=== PATIENT | male | born 1945 | race Caucasian/White ===

== ENCOUNTER 2018-01-22 09:13 | Inpatient (IN) | payer MEDICARE, BC ==
[2018-01-22] MEDS ORDERED: 0.9 % SODIUM CHLORIDE 1000ML 1,000 ML IV ONE (10:36)
--- NOTE | 2018-01-22 10:37 | Emergency Department Record ---
History of Present Illness - General Chief complaint: Facial Swelling Stated complaint: FACIAL SWELLING Time Seen by Provider: 01/22/18 10:26 Source: Patient, RN notes reviewed Mode of Arrival: Ambulatory - History of Present Illness Initial Comments: patient states his nose started 6 days ago and he was working on a fence and bees were around and he didn't think he got stung and he was seen at [facility] [place] times two since than, first visit place on medrol dose snow with a steroid shot and seen again yesterday ready care started him on bactrim DS bid first dose last night. His nose is swollen and especially on the septum of the nose and and facial swelling. Onset/Timin -: Week(s) Exposure: Unknown Symptoms: Facial swelling Severity: Moderate Treatment Prior to Arrival: Steroids - Related Data Home Medications Medication Instructions Recorded Confirmed Last Taken Sulfamethoxazole/Trimethoprim 800 mg PO BID 01/22/18 01/22/18 Unknown [Sulfamethoxazole-Tmp Ds Tablet] Allergies Allergy/AdvReac Type Severity Reaction Status Date / Time No Known Drug Allergies Allergy Verified 01/22/18 09:21 Travel Screening - Travel/Exposure Within Last 30 Days Have you traveled within the last 30 days?: No Review of Systems Reviewed: No additional complaints except as noted below Constitutional: Reports: As per HPI. Denies: Chills, Fever, Malaise, Night sweats, Weakness, Weight change Eyes: Reports: As per HPI. Denies: Eye discharge, Eye pain, Photophobia, Vision change ENT: Reports: As per HPI. Denies: Congestion, Dental pain, Ear pain, Epistaxis , Hearing loss, Throat pain Respiratory: Reports: As per HPI. Denies: Cough, Dyspnea, Hemoptysis, Stridor, Wheezes Cardiovascular: Reports: As per HPI. Denies: Arrhythmia, Chest pain, Dyspnea on exertion, Edema, Murmurs, Orthopnea, Palpitations, Paroxysmal nocturnal dyspnea, Rheumatic Fever, Syncope Endocrine: Reports: As per HPI. Denies: Fatigue, Heat or cold intolerance, Polydipsia, Polyuria Gastrointestinal: Reports: As per HPI. Denies: Abdominal pain, Constipation, Diarrhea, Hematemesis, Hematochezia, Melena, Nausea, Vomiting Genitourinary: Reports: As per HPI. Denies: Dysuria, Frequency, Hematuria, Incontinence, Retention, Testicular pain, Testicular mass, Urgency Musculoskeletal: Reports: As per HPI. Denies: Arthralgia, Back pain, Gout, Joint swelling, Myalgia, Neck pain Skin: Reports: As per HPI. Denies: Bruising, Change in color, Change in hair/ nails, Lesions, Pruritus, Rash Neurological: Reports: As per HPI. Denies: Abnormal gait, Confusion, Headache, Numbness, Paresthesias, Seizure, Tingling, Tremors, Vertigo, Weakness Psychiatric: Reports: As per HPI. Denies: Anxiety, Auditory hallucinations, Depression, Homicidal thoughts, Suicidal thoughts, Visual hallucinations Hematological/Lymphatic: Reports: As per HPI. Denies: Anemia, Blood Clots, Easy bleeding, Easy bruising, Swollen glands Past Medical History - SOCIAL HISTORY Smoking Status: Never smoker Alcohol Use: Occasional Drug Use: None - RESPIRATORY Hx Respiratory Disorders: No - CARDIOVASCULAR Hx Cardio Disorders: No - NEURO Hx Neuro Disorders: No - GI Hx GI Disorders: No - Hx Genitourinary Disorders: No - ENDOCRINE Hx Endocrine Disorders: No - MUSCULOSKELETAL Hx Musculoskeletal Disorders: No - PSYCH Hx Psych Problems: No - HEMATOLOGY/ONCOLOGY Hx Hematology/Oncology Disorders: No Family Medical History Any Significant Family History?: No Physical Exam - General General Appearance: Alert, Oriented x3, Cooperative, No acute distress - Head Head exam: Normal inspection - Eye Eye exam: Normal appearance, PERRL Pupils: Normal accommodation - ENT ENT exam: Normal exam, Mucous membranes moist, Normal external ear exam, Normal orophraynx, TM's normal bilaterally Ear exam: Normal external inspection. negative: External canal tenderness Nasal Exam: Other (nasal septum is swollen and tip on nose swollen). negative: Discharge, Sinus tenderness Mouth exam: Normal external inspection, Tongue normal Teeth exam: Normal inspection. negative: Dental caries Throat exam: Normal inspection. negative: Tonsillar erythema, Tonsillar exudate - Neck Neck exam: Normal inspection, Full ROM. negative: Tenderness - Respiratory Respiratory exam: Normal lung sounds bilaterally. negative: Respiratory distress - Cardiovascular Cardiovascular Exam: Regular rate, Normal rhythm, Normal heart sounds - GI/Abdominal GI/Abdominal exam: Soft, Normal bowel sounds. negative: Tenderness - Rectal Rectal exam: Deferred - exam: Deferred - Extremities Extremities exam: Normal inspection, Full ROM, Normal capillary refill. negative: Tenderness - Back Back exam: Reports: Normal inspection, Full ROM. Denies: Muscle spasm, Rash noted, Tenderness - Neurological Neurological exam: Alert, Normal gait, Oriented X3, Reflexes normal - Psychiatric Psychiatric exam: Normal affect, Normal mood - Skin Skin exam: Dry, Intact, Normal color, Warm Course Vital Signs 01/22/18 09:16 Temperature 98.1 F Pulse Rate 71 Respiratory 20 Rate Blood Pressure 123/82 Pulse Ox 99 - Reevaluation(s) Reevaluation #1: discussed case with Corina and will admit to Dr De Los Santos 01/22/18 11:29 01/22/18 11:33 Medical Decision Making - Data Complexity MDM Data: Labs Ordered and/or Reviewed (wbc [id number]) - Lab Data Result diagrams: 01/22/18 10:45 01/22/18 10:45 Disposition Clinical Impression: Cellulitis of nose, external, Facial cellulitis Decision to Admit: Admit from ER Condition: (2) Stable Forms: Patient Portal Access Time of Disposition: 11:35 Quality - Quality Measures Quality Measures: N/A - Blood Pressure Screening Does Patient Have Any of the Following: No Blood Pressure Classification: Pre-Hypertensive BP Reading Systolic Measurement: 123 Diastolic Measurement: 82 Screening for High Blood Pressure: < Pre-Hypertensive BP, F/U Documented > [ [id number]] Pre-Hypertensive Follow-up Interventions: Referral to alternative/primary care provider.
[2018-01-22 10:57] LABS: HEMATOCRIT 45.5 % (42.0-52.0); HEMOGLOBIN 14.9 gm/dl (14.0-18.0); MEAN CELL VOLUME 85.2 fl (81-97); MEAN CORPUSCULAR HEMOGLOBIN 27.9 pg (27-33); MEAN CORPUSCULAR HGB CONC 32.7 g/dl (32-36); MEAN PLATELET VOLUME 9.3 fl (7.4-10.4); PLATELET COUNT 238 K/uL (130-400); RED BLOOD COUNT 5.34 M/uL (4.40-5.70); RED CELL DISTRIBUTION WIDTH 16.8 % (11.5-14.5); WHITE BLOOD COUNT W/O DIFF 9.9 K/uL (4.2-12.2)
[2018-01-22 11:06] LABS: BLOOD UREA NITROGEN 14 mg/dL (8-23); EST GLOMERULAR FILTRATION RATE > 60 mL/min
[2018-01-22 11:09] LABS: GLUCOSE,RANDOM 101 mg/dL (74-109)
[2018-01-22] MEDS ORDERED: VANCOMYCIN HCL 1,000 MG in 0.9 % SODIUM CHLORIDE 250ML 250 ML IVPB ONE (11:13)
[2018-01-22] MEDS ORDERED: TMP/SMZ 160MG/800MG TAB PO SCH (12:00)
[2018-01-22] MEDS ORDERED: 0.9 % SODIUM CHLORIDE 1000ML 2,000 ML IV PRN (13:46)
[2018-01-22] MEDS: VANCOMYCIN HCL 1,000 MG in 0.9 % SODIUM CHLORIDE 250ML 250 ML IVPB SCH (13:50)
[2018-01-22] MEDS: ACETAMINOPHEN 325 MG TAB PO PRN (14:12)
[2018-01-22] MEDS ORDERED: PNEUM 13-VAL/PF 0.5 ML IM ONE (14:27)
[2018-01-22] MEDS: HYDROCODONE/APAP 5/325MG TABLET PO PRN ×2 (15:37→20:11)
[2018-01-22] MEDS ORDERED: DIPHENHYDRAMINE HCL 25 MG CAPSULE PO ONE (23:59)
[2018-01-23] MEDS: VANCOMYCIN HCL 1,000 MG in 0.9 % SODIUM CHLORIDE 250ML 250 ML IVPB SCH ×2 (01:33→14:15)
[2018-01-23] MEDS: HYDROCODONE/APAP 5/325MG TABLET PO PRN ×2 (02:07→08:44)
--- NOTE | 2018-01-23 06:19 | History & Physical ---
History of Present Illness - Date of Service Date of Service for History & Physical: 01/22/18 - History of Present Illness Admitting Diagnosis: nose and facial cellulitis History of Present Illness: Mr. Casey is a 72 year-old male who presented to the ED this morning with c/o nasal swelling. He states that he had been working on a fence and bees were around- he didn't think he got stung and he was seen at [facility] twice since then, first visit place on medrol dose pack with a steroid shot and seen again yesterday and started on bactrim DS bid (first dose last night). His nose is swollen and especially on the septum of the nose and and left facial swelling. His history is unremarkable. In the ED, his vitals were wnl and stable, his CBC and CMP were unremarkable. Due to the extend of his facial cellulitis, he was admitted for IV antibiotic therapy and monitoring. 01/22/18 1600: Pt. is resting in bed. He does nasal septum and left maxillary swelling and tenderness. His pain is being managed with norco 5/325- 2 tabs q6h. He is scheduled to receive bactrim ds q12h and vanco 1g q12h. Will recheck labs and reassess extent of swelling in the morning. Will consider sinus CT and possibly transfer for ENT referral if no improvement over night. Travel Screening - Travel/Exposure Within Last 30 Days Have you traveled within the last 30 days?: No - Travel/Exposure Within Last Year Have you traveled outside the [place] in the last year?: No - Additonal Travel Details Have you been exposed to anyone with a communicable illness?: No - Travel Symptoms Symptom Screening: None Review of Systems Constitutional: Reports: As per HPI. Denies: Chills, Fever, Malaise, Night sweats, Weakness, Weight change Eyes: Reports: As per HPI. Denies: Eye discharge, Eye pain, Photophobia, Vision change ENT: Reports: As per HPI. Denies: Congestion, Dental pain, Ear pain, Epistaxis , Hearing loss, Throat pain Respiratory: Reports: As per HPI. Denies: Cough, Dyspnea, Hemoptysis, Stridor, Wheezes Cardiovascular: Reports: As per HPI. Denies: Arrhythmia, Chest pain, Dyspnea on exertion, Edema, Murmurs, Orthopnea, Palpitations, Paroxysmal nocturnal dyspnea, Rheumatic Fever, Syncope Endocrine: Reports: As per HPI. Denies: Fatigue, Heat or cold intolerance, Polydipsia, Polyuria Gastrointestinal: Reports: As per HPI. Denies: Abdominal pain, Constipation, Diarrhea, Hematemesis, Hematochezia, Melena, Nausea, Vomiting Genitourinary: Reports: As per HPI. Denies: Dysuria, Frequency, Hematuria, Incontinence, Retention, Testicular pain, Testicular mass, Urgency Musculoskeletal: Reports: As per HPI. Denies: Arthralgia, Back pain, Gout, Joint swelling, Myalgia, Neck pain Skin: Reports: As per HPI. Denies: Bruising, Change in color, Change in hair/ nails, Lesions, Pruritus, Rash Neurological: Reports: As per HPI. Denies: Abnormal gait, Confusion, Headache, Numbness, Paresthesias, Seizure, Tingling, Tremors, Vertigo, Weakness Psychiatric: Reports: As per HPI. Denies: Anxiety, Auditory hallucinations, Depression, Homicidal thoughts, Suicidal thoughts, Visual hallucinations Hematological/Lymphatic: Reports: As per HPI. Denies: Anemia, Blood Clots, Easy bleeding, Easy bruising, Swollen glands Past Medical History - SOCIAL HISTORY Smoking Status: Never smoker Alcohol Use: Rare Drug Use: None - RESPIRATORY Hx Respiratory Disorders: No - CARDIOVASCULAR Hx Cardio Disorders: No - NEURO Hx Neuro Disorders: No - GI Hx GI Disorders: No - Hx Genitourinary Disorders: No - ENDOCRINE Hx Endocrine Disorders: No - MUSCULOSKELETAL Hx Musculoskeletal Disorders: No - PSYCH Hx Psych Problems: No - HEMATOLOGY/ONCOLOGY Hx Hematology/Oncology Disorders: No Family Medical History Any Significant Family History?: No H&P Meds/Allergies - Allergies Allergies: Allergies Allergy/AdvReac Type Severity Reaction Status Date / Time No Known Drug Allergies Allergy Verified 01/22/18 09:21 - Home Medications Home Medications Medication Instructions Recorded Confirmed Last Taken Sulfamethoxazole/Trimethoprim 800 mg PO BID 01/22/18 01/22/18 Unknown [Sulfamethoxazole-Tmp Ds Tablet] - Active Medications Active Medications: Current Medications Acetaminophen (Tylenol 325mg) 650 mg PO Q6H PRN PRN Reason: PAIN - MILD(1-4)/FEVER Last Admin: 01/22/18 14:12 Dose: 650 mg Hydrocodone Bitart/Acetaminophen ([place] 5mg/325mg) 2 each PO Q6H PRN PRN Reason: PAIN - MILD TO MODERATE (1-7) Last Admin: 01/23/18 02:07 Dose: 2 each Enoxaparin Sodium (Lovenox) 40 mg SC DAILY [facility] Vancomycin HCl 1,000 mg/ (Sodium Chloride) 250 mls @ 250 mls/60 min IVPB Q12H [facility] Stop: 01/27/18 13:47 Last Infusion: 01/23/18 02:44 Dose: Infused Trimethoprim/Sulfamethoxazole (Bactrim Ds) 1 each PO BID [facility] Last Admin: 01/22/18 14:12 Dose: 1 each Physical Exam - Vital Signs Vital Signs: Vital Signs - Last 24 Hrs Temp Pulse Pulse Resp BP BP Pulse Ox 01/23/18 00:00 52 L 18 138/80 93 L 01/22/18 21:00 53 L 18 01/22/18 20:09 98.1 F 53 L 18 99/64 96 01/22/18 18:00 97.6 F 52 L 16 110/56 95 01/22/18 13:38 53 L 18 113/72 98 01/22/18 13:30 97.9 F 57 L 18 119/75 100 01/22/18 09:16 98.1 F 71 20 123/82 99 - General General Appearance: Alert, Oriented x3, Cooperative, No acute distress - Head Head exam: Normal inspection - Eye Eye exam: Normal appearance, PERRL Pupils: Normal accommodation - ENT ENT exam: Normal exam, Mucous membranes moist, Normal external ear exam, Normal orophraynx, TM's normal bilaterally Ear exam: Normal external inspection. negative: External canal tenderness Nasal Exam: Other (nasal septum is swollen and tip on nose swollen). negative: Discharge, Sinus tenderness Mouth exam: Normal external inspection, Tongue normal Teeth exam: Normal inspection. negative: Dental caries Throat exam: Normal inspection. negative: Tonsillar erythema, Tonsillar exudate - Neck Neck exam: Normal inspection, Full ROM. negative: Tenderness - Respiratory Respiratory exam: Normal lung sounds bilaterally. negative: Respiratory distress - Cardiovascular Cardiovascular Exam: Regular rate, Normal rhythm, Normal heart sounds - GI/Abdominal GI/Abdominal exam: Soft, Normal bowel sounds. negative: Tenderness - Rectal Rectal exam: Deferred - exam: Deferred - Extremities Extremities exam: Normal inspection, Full ROM, Normal capillary refill. negative: Tenderness - Back Back exam: Reports: Normal inspection, Full ROM. Denies: Muscle spasm, Rash noted, Tenderness - Neurological Neurological exam: Alert, Normal gait, Oriented X3, Reflexes normal - Psychiatric Psychiatric exam: Normal affect, Normal mood - Skin Skin exam: Dry, Intact, Normal color, Warm Results - Labs Result Diagrams: 01/22/18 10:45 01/22/18 10:45 Labs Last 24 Hours: Laboratory Results - last 24 hr 01/22/18 01/22/18 10:45 10:45 WBC 9.9 RBC 5.34 Hgb 14.9 Hct 45.5 MCV 85.2 MCH 27.9 MCHC 32.7 RDW 16.8 H Plt Count 238 MPV 9.3 Neutrophils % 79.0 Band Neutrophils % 0.0 Eosinophils % Not Reportable Basophils % Not Reportable Lymphocytes 14.0 L Monocytes 4.0 Basophils 0.0 Eosinophil Count 3.0 Sodium 138 Potassium 3.9 Chloride 100 Carbon Dioxide 28.0 Anion Gap 10.0 BUN 14 Creatinine 1.0 Estimated GFR > 60 Random Glucose 101 Calcium 8.7 L VTE H&P Assessment - Risk for VTE Risk for VTE: Yes Risk Level: Low Risk Assessment Date: 01/22/18 Risk Assessment Time: 16:00 VTE Orders Placed or Will Be Placed: Yes Plan - Inpatient Certification Inpatient Certification: Admit to inpatient care: Based on my medical assessment, after consideration of patient's risk factors (age, co-morbidities and patient presenting symptoms and acuity), I expect that this patient will remain in the hospital greater than or equal to two midnights and that the services needed warrant inpatient care because: Patient Risk Factors: [Age, comorbidities] Estimated length of stay: [48-96 hours] The patient may reasonably be expected to be discharged or transferred to a hospital within 96 hours after admission to [facility]. Services needed: [IV abx, lab monitoring] Post hospital care (if known): [] I certify that my determination is in accordance with my understanding of Medicare requirements for reasonable and necessary inpatient services. 01/22/18 1600 - Detailed Diagnosis and Plan (1) Facial cellulitis Current Visit: Yes Status: Acute Base Code: L03.211 - CELLULITIS OF FACE Comment: 01/22/18: -Cellulitis of nasal septum and left maxillar sinus area -Treating with IV vanco 1g q12h and bactrim DS q12h -Pain managed with norco 5/325- 2 tabs q6h -Will continue to monitor swelling- will consider transfer for ENT eval if no improvement (2) At risk for deep venous thrombosis Current Visit: Yes Status: Acute Base Code: Z91.89 - OTH PERSONAL RISK FACTORS, NOT ELSEWHERE CLASSIFIED Comment: 01/22/18: -40mg SC lovenox daily (3) Full code status Current Visit: Yes Status: Acute Base Code: Z78.9 - OTHER SPECIFIED HEALTH STATUS Comment: 01/22/18: -Pt. is a full code
[2018-01-23 06:33] LABS: BASO % 0.1 % (0-6); EOS % 2.8 % (0-6); GRAN % 71.7 % (47-80); HEMOGLOBIN 14.2 gm/dl (14.0-18.0); LYMPH % 12.5 % (16-45); MEAN CELL VOLUME 85.3 fl (81-97); MEAN CORPUSCULAR HEMOGLOBIN 28.2 pg (27-33); MEAN PLATELET VOLUME 9.3 fl (7.4-10.4); MONO % 12.9 % (0-9); PLATELET COUNT 226 K/uL (130-400); RED BLOOD COUNT 5.04 M/uL (4.40-5.70); RED CELL DISTRIBUTION WIDTH 16.7 % (11.5-14.5); WHITE BLOOD COUNT W/O DIFF 9.9 K/uL (4.2-12.2)
[2018-01-23] MEDS: ACETAMINOPHEN 325 MG TAB PO PRN ×2 (06:36→12:30)
[2018-01-23 06:50] LABS: ALB/GLOB RATIO 1.2 (1.1-1.8); ALBUMIN 3.4 g/dL (4.0-5.0); ALKALINE PHOSPHATASE 65 U/L (40-129); ALT/SGPT 17 U/L (<41); AST/SGOT 14 U/L (10.0-50.0); BLOOD UREA NITROGEN 11 mg/dL (8-23); CREATININE 0.9 mg/dL (0.7-1.2); EST GLOMERULAR FILTRATION RATE > 60 mL/min; GLUCOSE,RANDOM 102 mg/dL (74-109); TOTAL PROTEIN 6.3 g/dL (6.6-8.7)
--- NOTE | 2018-01-23 09:15 | Physician Progress Note ---
Subjective - Date Date of Physician Progress Note: 01/23/18 - Subjective Subjective Comment: Pt. is resting in bed. He reports some improvement in facial pain/pressure. His redness/swelling has slightly improved as well. Will plan to continue abx therapy and continue to monitor extent of cellulitis. Objective - Vital Signs Vital Signs: Vital Signs - Last 24 Hrs Temp Pulse Pulse Resp BP BP Pulse Ox 01/23/18 08:48 99.6 F 64 16 118/82 99 01/23/18 06:00 97.6 F 55 L 18 126/71 98 01/23/18 00:00 52 L 18 138/80 93 L 01/22/18 21:00 53 L 18 01/22/18 20:09 98.1 F 53 L 18 99/64 96 01/22/18 18:00 97.6 F 52 L 16 110/56 95 01/22/18 13:38 53 L 18 113/72 98 01/22/18 13:30 97.9 F 57 L 18 119/75 100 01/22/18 09:16 98.1 F 71 20 123/82 99 - General General Appearance: Alert, Oriented x3, Cooperative, No acute distress - Head Head exam: Normal inspection - Eye Eye exam: Normal appearance, PERRL Pupils: Normal accommodation - ENT ENT exam: Normal exam, Mucous membranes moist, Normal external ear exam, Normal orophraynx, TM's normal bilaterally Ear exam: Normal external inspection. negative: External canal tenderness Nasal Exam: Other (nasal septum is swollen and tip on nose swollen). negative: Discharge, Sinus tenderness Mouth exam: Normal external inspection, Tongue normal Teeth exam: Normal inspection. negative: Dental caries Throat exam: Normal inspection. negative: Tonsillar erythema, Tonsillar exudate - Neck Neck exam: Normal inspection, Full ROM. negative: Tenderness - Respiratory Respiratory exam: Normal lung sounds bilaterally. negative: Respiratory distress - Cardiovascular Cardiovascular Exam: Regular rate, Normal rhythm, Normal heart sounds - GI/Abdominal GI/Abdominal exam: Soft, Normal bowel sounds. negative: Tenderness - Rectal Rectal exam: Deferred - exam: Deferred - Extremities Extremities exam: Normal inspection, Full ROM, Normal capillary refill. negative: Tenderness - Back Back exam: Reports: Normal inspection, Full ROM. Denies: Muscle spasm, Rash noted, Tenderness - Neurological Neurological exam: Alert, Normal gait, Oriented X3, Reflexes normal - Psychiatric Psychiatric exam: Normal affect, Normal mood - Skin Skin exam: Dry, Intact, Normal color, Warm Assessment and Plan - Assessment and Plan (1) Facial cellulitis Current Visit: Yes Status: Acute Base Code: L03.211 - CELLULITIS OF FACE Comment: 01/23/18: -Cellulitis of nasal septum and left maxillary sinus area -Treating with IV vanco 1g q12h and bactrim DS q12h -Pain managed with norco 5/325- 2 tabs q6h -Will continue to monitor swelling- will consider transfer for ENT eval if no improvement (2) At risk for deep venous thrombosis Current Visit: Yes Status: Acute Base Code: Z91.89 - OTH PERSONAL RISK FACTORS, NOT ELSEWHERE CLASSIFIED Comment: 01/23/18: -40mg SC lovenox daily (3) Full code status Current Visit: Yes Status: Acute Base Code: Z78.9 - OTHER SPECIFIED HEALTH STATUS Comment: 01/23/18: -Pt. is a full code Results - Labs Result Diagrams: 01/23/18 06:28 01/23/18 06:28 Labs Last 24 Hours: Laboratory Results - last 24 hr 01/22/18 01/22/18 01/23/18 10:45 10:45 06:28 WBC 9.9 9.9 RBC 5.34 5.04 Hgb 14.9 14.2 Hct 45.5 43.0 MCV 85.2 85.3 MCH 27.9 28.2 MCHC 32.7 33.0 RDW 16.8 H 16.7 H Plt Count 238 226 MPV 9.3 9.3 Gran % 71.7 Neutrophils % 79.0 Band Neutrophils % 0.0 Lymphocytes % 12.5 L Monocytes % 12.9 H Eosinophils % Not Reportable 2.8 Basophils % Not Reportable 0.1 Lymphocytes 14.0 L Monocytes 4.0 Basophils 0.0 Eosinophil Count 3.0 Sodium 138 Potassium 3.9 Chloride 100 Carbon Dioxide 28.0 Anion Gap 10.0 BUN 14 Creatinine 1.0 Estimated GFR > 60 Random Glucose 101 Calcium 8.7 L Total Bilirubin AST ALT Alkaline Phosphatase Total Protein Albumin Globulin Albumin/Globulin Ratio 01/23/18 06:28 WBC RBC Hgb Hct MCV MCH MCHC RDW Plt Count MPV Gran % Neutrophils % Band Neutrophils % Lymphocytes % Monocytes % Eosinophils % Basophils % Lymphocytes Monocytes Basophils Eosinophil Count Sodium 136 Potassium 3.9 Chloride 101 Carbon Dioxide 24.0 Anion Gap 11.0 BUN 11 Creatinine 0.9 Estimated GFR > 60 Random Glucose 102 Calcium 8.4 L Total Bilirubin 0.60 AST 14 ALT 17 Alkaline Phosphatase 65 Total Protein 6.3 L Albumin 3.4 L Globulin 2.9 Albumin/Globulin Ratio 1.2 DVT/PE Assessment - Risk for VTE Risk for VTE: No Risk Level: Low Risk Assessment Date: 01/22/18 Risk Assessment Time: 16:00 VTE Orders Placed or Will Be Placed: Yes - Active Medicaitons Current Medications: Current Medications Acetaminophen (Tylenol 325mg) 650 mg PO Q6H PRN PRN Reason: PAIN - MILD(1-4)/FEVER Last Admin: 01/23/18 06:36 Dose: 650 mg Hydrocodone Bitart/Acetaminophen ([place] 5mg/325mg) 2 each PO Q6H PRN PRN Reason: PAIN - MILD TO MODERATE (1-7) Last Admin: 01/23/18 08:44 Dose: 2 each Enoxaparin Sodium (Lovenox) 40 mg SC DAILY [facility] Vancomycin HCl 1,000 mg/ (Sodium Chloride) 250 mls @ 250 mls/60 min IVPB Q12H [facility] Stop: 01/27/18 13:47 Last Infusion: 01/23/18 02:44 Dose: Infused Trimethoprim/Sulfamethoxazole (Bactrim Ds) 1 each PO BID [facility] Last Admin: 01/22/18 14:12 Dose: 1 each AMI Plan - Labs Result Diagrams: 01/23/18 06:28 01/23/18 06:28
[2018-01-23] MEDS ORDERED: ENOXAPARIN 40 MG/0.4 ML SYR SC SCH (10:00)
[2018-01-23] MEDS ORDERED: VANCOMYCIN HCL 1,000 MG in DEXTROSE 5 % IN WATER 250 ML IVPB SCH ×2 (14:00)
--- NOTE | 2018-01-23 16:22 | Discharge Summary ---
Providers Discharge Summary Date: 01/23/18 Date of admission: 01/22/18 13:32 Expected Date of Discharge: 01/23/18 Attending physician: NEW GUNN Primary care physician: Dr. Jane Physical Exam - Vital Signs Vital Signs: Vital Signs - Last 24 Hrs Temp Pulse Resp BP Pulse Ox 01/23/18 09:00 60 18 01/23/18 08:48 99.6 F 64 16 118/82 99 01/23/18 06:00 97.6 F 55 L 18 126/71 98 01/23/18 00:00 52 L 18 138/80 93 L 01/22/18 21:00 53 L 18 01/22/18 20:09 98.1 F 53 L 18 99/64 96 01/22/18 18:00 97.6 F 52 L 16 110/56 95 - General General Appearance: Alert, Oriented x3, Cooperative, No acute distress - Head Head exam: Normal inspection - Eye Eye exam: Normal appearance, PERRL Pupils: Normal accommodation - ENT ENT exam: Normal exam, Mucous membranes moist, Normal external ear exam, Normal orophraynx, TM's normal bilaterally Ear exam: Normal external inspection. negative: External canal tenderness Nasal Exam: Sinus tenderness, Other (nasal septum swelling, approximately 1.5 cm thickness). negative: Normal inspection, Discharge Mouth exam: Normal external inspection, Tongue normal Teeth exam: Normal inspection. negative: Dental caries Throat exam: Normal inspection. negative: Tonsillar erythema, Tonsillar exudate - Neck Neck exam: Normal inspection, Full ROM. negative: Tenderness - Respiratory Respiratory exam: Normal lung sounds bilaterally. negative: Respiratory distress - Cardiovascular Cardiovascular Exam: Regular rate, Normal rhythm, Normal heart sounds - GI/Abdominal GI/Abdominal exam: Soft, Normal bowel sounds. negative: Tenderness - Rectal Rectal exam: Deferred - exam: Deferred - Extremities Extremities exam: Normal inspection, Full ROM, Normal capillary refill. negative: Tenderness - Back Back exam: Reports: Normal inspection, Full ROM. Denies: Muscle spasm, Rash noted, Tenderness - Neurological Neurological exam: Alert, Normal gait, Oriented X3, Reflexes normal - Psychiatric Psychiatric exam: Normal affect, Normal mood - Skin Skin exam: Dry, Intact, Normal color, Warm Hospitalization - Hospitalization Admission Diagnosis: nose and facial cellulitis - Problem List/Discharge Diagnosis (1) Facial cellulitis Current Visit: Yes Status: Acute Base Code: L03.211 - CELLULITIS OF FACE Comment: 01/23/18: -Cellulitis of nasal septum and left maxillary sinus area -Treating with IV vanco 1g q12h and bactrim DS q12h -Pt. has become increasingly painful -Nasal septum swelling worsening, likely formation of septal abscess (2) At risk for deep venous thrombosis Current Visit: Yes Status: Acute Base Code: Z91.89 - OTH PERSONAL RISK FACTORS, NOT ELSEWHERE CLASSIFIED Comment: 01/23/18: -40mg SC lovenox daily (3) Full code status Current Visit: Yes Status: Acute Base Code: Z78.9 - OTHER SPECIFIED HEALTH STATUS Comment: 01/23/18: -Pt. is a full code - Disposition Transfer to [facility] ENT consult for septal abscess - Hospitalization Course Disposition: Acute Care Hospital Transfer Hospital Course: Mr. Casey is a 72 year-old male who presented to the ED this morning with c/o nasal swelling. He states that he had been working on a fence and bees were around- he didn't think he got stung and he was seen at [facility] twice since then, first visit place on medrol dose pack with a steroid shot and seen again yesterday and started on bactrim DS bid (first dose last night). His nose is swollen and especially on the septum of the nose and and left facial swelling. His history is unremarkable. In the ED, his vitals were wnl and stable, his CBC and CMP were unremarkable. Due to the extend of his facial cellulitis, he was admitted for IV antibiotic therapy and monitoring. 01/22/18 1600: Pt. is resting in bed. He does nasal septum and left maxillary swelling and tenderness. His pain is being managed with norco 5/325- 2 tabs q6h. He is scheduled to receive bactrim ds q12h and vanco 1g q12h. Will recheck labs and reassess extent of swelling in the morning. Will consider sinus CT and possibly transfer for ENT referral if no improvement over night. 01/23/18 0900: Pt. is resting in bed. He reports some improvement in facial pain/pressure. His redness/swelling has slightly improved as well. Will plan to continue abx therapy and continue to monitor extent of cellulitis. 01/23/18 1600: Pt. c/o worsening pain in his nose. Upon exam- nasal septum more inflamed, approximately 1.5cm thick, likely abscess formation. Plan to transfer to [facility] for urgent ENT consultation. Dr. Daily accepting admission. Abnormal Labs: Abnormal Lab Results 01/22/18 01/22/18 01/23/18 Range/Units 10:45 10:45 06:28 RDW 16.8 H 16.7 H (11.5-14.5) % Lymphocytes % 12.5 L (16-45) % Monocytes % 12.9 H (0-9) % Lymphocytes 14.0 L (16-45) % Calcium 8.7 L (8.8-10.2) mg/dL Total Protein (6.6-8.7) g/dL Albumin (4.0-5.0) g/dL 01/23/18 Range/Units 06:28 RDW (11.5-14.5) % Lymphocytes % (16-45) % Monocytes % (0-9) % Lymphocytes (16-45) % Calcium 8.4 L (8.8-10.2) mg/dL Total Protein 6.3 L (6.6-8.7) g/dL Albumin 3.4 L (4.0-5.0) g/dL Condition at Discharge: (2) Stable VTE Discharge VTE Reason For No Overlap Therapy: Not Indicated (Transfer to acute care hospital) Discharge Medications - Discharge Medications Home Medications: Ambulatory Orders Acetaminophen [Tylenol 325Mg] 650 mg PO Q6H PRN tablet 01/23/18 [Last Taken Unknown] Enoxaparin Sodium [Lovenox] 40 mg SC DAILY syr 01/23/18 [Last Taken Unknown] Hydrocodone/APAP 5/325Mg [[place] 5Mg/325Mg] 2 each PO Q6H PRN tab 01/23/18 [ Last Taken Unknown] Sulfamethoxazole/Trimethoprim [Bactrim] 1 each PO BID tab 01/23/18 [Last Taken Unknown] Discharge Plan - Discharge Instructions Activity at Discharge: Resume Usual Activities As Tolerated Diet at Discharge: Regular Diet Quality Measures - Quality Measures Quality Measures: Advance Directives, Documentation of Current Medications in Medical Record, Elder Maltreatment Screen and Follow-Up Plan, Screening for High Blood Pressure and F/U Documented - Current Medications Quality Measure: Measure #130: Documentation of Current Medications Documentation of Current Medications: <Current Medications Documented/Reviewed> [R7615] - Blood Pressure Screening Quality Measure: Screening for High Blood Pressure and Follow-Up Documented Does Patient Have Any of the Following: No Blood Pressure Classification: Normal BP Reading Systolic Measurement: 113 Diastolic Measurement: 72 Screening for High Blood Pressure: < Normal BP, F/U Not Required > [G5513] - Advance Directives Quality Measure: Measure #47: Care Plan Advance Directives Established: No Advance Directives Information Provided To Patient: No Advance Directives on File: No Living Will: No Power of Cashier Associate: No Advance Care Planning: <Care Plan/Decision Maker Documented; Discussed & Documented> [[id number]] - Elder Abuse Suspicion Index Screening: Elder Abuse Suspicion Index Screening Rely on people for bathing, dressing, shopping, banking, etc: No Prevented from getting food, clothes, medication, etc: No Made to feel shamed or threatened by someone: No Forced to sign papers or use money against will: No Feel afraid, touched in ways not wanted or hurt physically: No Poor eye contact, withdrawn, malnourished, cuts or bruises: No Screening Result: Negative result EASI Reference Information: Sadie NEWMAN, Bijan C, aSmira D, Dipesh M.Development and validation of a tool to assist physicians identification of elder abuse: The Elder Abuse Suspicion Index (EASI ). Journal of Elder Abuse and Neglect, 2008; 20 (3): 276-300. - Elder Maltreatment Screen Quality Measures: Elder Maltreatment Screen and Follow-Up Plan Elder Maltreatment Screen: <Negative, No Follow-Up Plan Required> [[id number]]
[2018-01-23] MEDS ORDERED: ONDANSETRON HCL IV 4 MG/2 ML VIAL IVP PRN (18:16)
== END 2018-01-23 20:15 | disposition short-term general hospital (02) | DRG 603 ==
LOC: ER 09:13 → MEDSURG 13:32
PROVIDERS: ADMIT Internal Medicine; ATTEND Internal Medicine
DX: L03.211 Cellulitis of face (principal); J34.0 Abscess, furuncle and carbuncle of nose
CPT/HCPCS: 80048; 85027; J3370; 80053; 85025; 96374; 99223; 99232; 99285; J1650; J2405; J7050; J7060